=== PATIENT | female | born 1985 | race Caucasian/White ===

== ENCOUNTER 2017-02-27 21:34 | Emergency (ER) | payer OTHER ==
[~2017-02-27] VITALS: Ht 162.6 cm; Wt 90.7 kg
[~2017-02-27 21:34] MED LIST: PANT40TA2 PO
[2017-02-27 21:41] VITALS: BP 157/91
== END 2017-02-27 21:45 | disposition left against medical advice (07) ==
LOC: ER 21:37
DX: O46.91 Antepartum hemorrhage, unspecified, first trimester (principal); Z53.21 Procedure and treatment not carried out due to patient leaving prior to being seen by health care provider

== ENCOUNTER 2019-01-18 14:21 | Emergency (ER) | payer BC, OTHER ==
[~2019-01-18] VITALS: Ht 162.6 cm; Wt 87.1 kg
[2019-01-18 14:45] LABS: Urine WBC None Seen /hpf (0 - 5)
[2019-01-18 15:02] LABS: Urine Bacteria FEW /hpf (None Seen); Urine Blood 2+ /uL (Negative); Urine Mucus FEW (None Seen); Urine Specific Gravity 1.029 (1.001-1.035)
[2019-01-18 15:20] LABS: Basophils # (auto) 0.1 uL; Basophils % (auto) 1.2 % (0.0-2.0); Eosinophils # (auto) 0.3 uL; Eosinophils % (auto) 3.7 % (0.0-7.0); Hematocrit 40.4 % (36.0-46.0); Hemoglobin 13.3 g/dL (12.2-16.2); Lymphocytes # (auto) 2.6 uL; Lymphocytes % (auto) 31.4 % (10.0-50.0); Mean Corpuscular Hemoglobin 25.8 pg (28.0-32.0); Mean Corpuscular Volume 78.1 fL (80.0-100.0); Monocytes # (auto) 0.5 uL; Monocytes % (auto) 6.4 % (0.0-12.0); Neutrophils # (auto) 4.8 uL; Neutrophils % (auto) 57.3 % (37.0-80.0); Platelet Count (auto) 342 10^3/uL (140-450); Red Blood Cells 5.17 10^6/uL (4.0-5.20); Red Cell Distribution Width 14.5 % (11.8-14.3); White Blood Cell 8.4 10^3/uL (4.4-10.8)
[2019-01-18 15:38] LABS: Albumin 3.7 g/dL (3.4-5.0); Calcium 8.4 mg/dL (8.5-10.1)
[2019-01-18 15:41] LABS: BUN/Creatinine Ratio 13.1; Bilirubin, Total 0.7 mg/dL (0.2-1.0); Total Protein 7.8 g/dL (6.4-8.2)
[2019-01-18] MEDS ORDERED: SODIUM CHLORIDE 0.9% 1,000 ML IV ONE ×2 (17:46)
[2019-01-18] MEDS ORDERED: cefTRIAXone 1GM/50ML D5W 50 ML IV ONE ×2 (18:00→18:41)
[2019-01-18 18:27] LABS: INR 0.95 (0.9-1.15)
[2019-01-18 18:33] VITALS: BP 189/72
== END 2019-01-18 20:27 | disposition left against medical advice (07) ==
LOC: ER 14:24
DX: O00.90 Unspecified ectopic pregnancy without intrauterine pregnancy (principal); O46.91 Antepartum hemorrhage, unspecified, first trimester; O26.891 Other specified pregnancy related conditions, first trimester; R10.9 Unspecified abdominal pain; Z3A.01 Less than 8 weeks gestation of pregnancy
CPT/HCPCS: 36415; 76801; 80053; 81001; 84702; 85025; 85610; 86850; 86900; 86901; 96365; 99284; J0696